=== PATIENT | male | born 1980 | race African-American/Black ===

== ENCOUNTER 2022-05-31 00:18 | Emergency (ER) | payer OTHER ==
[~2022-05-31] VITALS: Ht 180.3 cm; Wt 110.3 kg
[2022-05-31 00:20] VITALS: BP 132/82
[2022-05-31] MEDS ORDERED: LEVO1TAB39 PO (00:30)
[2022-05-31] MEDS ORDERED: IBUP1TAB7 PO (00:30)
[2022-05-31] MEDS ORDERED: TERB250T91 PO (00:30)
[2022-05-31 02:49] LABS: GC DNA AMPLIFICATION NEGATIVE (NEGATIVE)
[2022-05-31] MEDS ORDERED: NORCO 5/325MG TABLET (HOME DOSE PACK) PO ONE (03:10)
== END 2022-05-31 03:36 | disposition home or self-care (01) ==
LOC: M ED 00:18
DX: N45.1 Epididymitis (principal); N43.3 Hydrocele, unspecified